=== PATIENT | female | born 1980 | race Caucasian/White ===

== ENCOUNTER → 2017-07-22 | Outpatient (CLI) | payer BC ==
[~2017-07-22] MED LIST: CLARITIN 1010 MG/TAB PO; MOTRIN 600600 MG/TAB PO; PERCOCET 325 MG1 TA2 PO; PRENATAL1 TA1 PO; PULMICORT90 MCG/Act IH; RHINOCORT0.032 MG/1 NS; SINGULAIR 110 MG/TAB PO; VITAMIN D3400 IU PO; ZANTAC 150MG T150 MG PO; ZOLOFT 100MG100 MG PO
== END ==
LOC: COL.PUL 07:57
DX: J45.909 Unspecified asthma, uncomplicated (principal)

== ENCOUNTER 2017-12-08 12:03 | Day surgery (SDC) | payer BC ==
[~2017-12-08] VITALS: Ht 165.1 cm; Wt 95.2 kg
[2017-12-08] MEDS ORDERED: QVAR0.04 MG/AC IH (12:38)
[2017-12-08] MEDS ORDERED: ADALAT CC30 MG PO (12:39)
[2017-12-08] MEDS ORDERED: FLONASEALLERGY NS (12:40)
[2017-12-08] MEDS ORDERED: THEO-24100 MG PO (12:40)
[2017-12-08] MEDS ORDERED: NEIGHBOR PO (12:41)
[2017-12-08 13:10] VITALS: BP 134/78; PULSE 88; TEMP 97.5
[2017-12-08 14:30] VITALS: BP 123/77; PULSE 84; TEMP 97.3
[2017-12-08 14:45] VITALS: BP 120/62; PULSE 70
[2017-12-08 15:00] VITALS: BP 117/68; PULSE 75
[2017-12-08] MEDS ORDERED: PRILOSEC 20MG20 MG PO (15:07)
[2017-12-08 15:15] VITALS: BP 122/70; PULSE 61
== END 2017-12-08 17:15 | disposition home or self-care (01) ==
LOC: SDCO 12:03
DX: K29.30 Chronic superficial gastritis without bleeding (principal); I10 Essential (primary) hypertension; J45.909 Unspecified asthma, uncomplicated; Z86.79 Personal history of other diseases of the circulatory system
CPT/HCPCS: OP; J2250; J2405; J3010; J7030

== ENCOUNTER 2018-11-12 17:42 | Emergency (ER) | payer BC ==
[~2018-11-12] VITALS: Ht 165.1 cm; Wt 95.5 kg
[~2018-11-12 17:42] MED LIST changes: +ADALAT CC30 MG PO; +FLONASEALLERGY NS; +NEIGHBOR PO; +PRILOSEC 20MG20 MG PO; +QVAR0.04 MG/AC IH; +THEO-24100 MG PO
[2018-11-12 17:48] VITALS: TEMP 97.2
[2018-11-12 19:19] LABS: BASO % 0.4 % (0.0-2.0); EOS # 0.1 (0.0-0.7); EOS % 2.5 % (0-4.0); GRAN # 3.3 (1.4-6.5); HEMATOCRIT 44.5 % (37.0-47.0); LYMPH # 1.5 (1.2-3.4); LYMPH % 26.2 % (20.0-51.0); MEAN CELL VOLUME 90 fl (80.0-100.0); MEAN CORPUSCULAR HEMOGLOBIN 30 pg (27.0-31.0); MEAN CORPUSCULAR HGB CONC 34 g/dl (33.0-37.0); MEAN PLATELET VOLUME 10.3 fl (7.4-10.4); MONO # 0.8 (0.1-0.6); MONO % 13.5 % (1.7-9.3); PLATELET COUNT 174 K/mm3 (130-400); RED BLOOD COUNT 4.93 M/mm3 (4.10-5.30); REDCELL DISTRIBUTION WIDTH-CV 12.7 % (11.5-14.5)
[2018-11-12 19:23] LABS: ALBUMIN 4.5 gm/dL (3.5-5.0); BILIRUBIN,TOTAL 0.4 mg/dL (0.0-1.0); CALCIUM 9.4 mg/dL (8.4-10.2); CREATININE, serum 0.86 mg/dL (0.52-1.25); POTASSIUM 3.4 mmol/L (3.4-5.0)
[2018-11-12] MEDS ORDERED: TAMIFLU30 MG PO (19:36)
[2018-11-12] MEDS ORDERED: PREDNISONE20 MG PO (21:54)
[2018-11-12 22:35] VITALS: BP 142/76; PULSE 86
== END 2018-11-12 22:35 | disposition home or self-care (01) ==
LOC: COL.ER 17:42
PROVIDERS: Physician Assistant
DX: J45.901 Unspecified asthma with (acute) exacerbation (principal); J10.89 Influenza due to other identified influenza virus with other manifestations; R74.0 Nonspecific elevation of levels of transaminase and lactic acid dehydrogenase [LDH]; Z79.51 Long term (current) use of inhaled steroids
CPT/HCPCS: J7512; Q9967

== ENCOUNTER → 2021-09-24 | Outpatient (CLI) | payer BC ==
[~2021-09-24] MED LIST changes: +PREDNISONE20 MG PO; +TAMIFLU30 MG PO
== END ==
LOC: MC.RAD 09:09
DX: Z12.31 Encounter for screening mammogram for malignant neoplasm of breast (principal)

== ENCOUNTER → 2023-12-08 | Outpatient (CLI) | payer BC | LOC: MC.RAD 10:51 | DX: Z12.31 Encounter for screening mammogram for malignant neoplasm of breast (principal) ==